=== PATIENT | female | born 1990 | race Caucasian/White ===

== ENCOUNTER 2016-12-27 14:26 | Emergency (ER) | payer OTHER ==
[2016-12-27 15:55] LABS: HEMOGLOBIN 15.6 gm/dl (12.3-15.3); RED BLOOD COUNT 5.1 M/UL (4.00-5.10); WHITE BLOOD COUNT 5.7 K/UL (4.5-11.0)
[2016-12-27 16:08] LABS: BUN/CREATININE RATIO 11 (0-10)
== END 2016-12-27 17:43 | disposition home or self-care (01) ==
LOC: ER1 14:26
PROVIDERS: Physician Assistant Medical
DX: J10.1 Influenza due to other identified influenza virus with other respiratory manifestations (principal); I10 Essential (primary) hypertension; Z88.8 Allergy status to other drugs, medicaments and biological substances
CPT/HCPCS: 36415; 80053; 81001; 82150; 83690; 84703; 85025; 87081; 87880; 99283; J7030

== ENCOUNTER 2020-12-02 10:37 | Emergency (ER) | payer OTHER ==
[~2020-12-02 10:37] MED LIST: AZITHROMYCIN500 MG PO; BENTYL 20MG TAB20 MG PO; Bromphed DM PO; CEFUROXIME500 MG PO; FELDENE10 MG PO; FLEXERIL 10 MG10 MG PO; FLONASE 0.05% N16 GM; IBUPROFEN600 MG PO; KEFLEX500 MG PO; LODINE CAP 300300 MG PO; MACROBID 100 M100 MG PO; NAPROSYN EC 50500 MG GT; PHENERGAN 25 MG25 M1 PO; PYRIDIUM200 MG PO; VALTREX1000 MG PO; ZOFRAN ODT 4 MG4 MG PO; ZOFRAN4 MG PO
[2020-12-02 12:32] LABS: HEMOGLOBIN 15.2 gm/dl (12.3-15.3); RED BLOOD COUNT 4.83 M/UL (4.00-5.10); WHITE BLOOD COUNT 9.9 K/UL (4.5-11.0)
[2020-12-02 12:50] LABS: BUN/CREATININE RATIO 15 (0-10)
[2020-12-02] MEDS ORDERED: BENTYL 20MG TAB20 MG PO (14:52)
== END 2020-12-02 14:52 | disposition home or self-care (01) ==
LOC: ER1 10:37
PROVIDERS: Physician Assistant
DX: K62.5 Hemorrhage of anus and rectum (principal); R10.84 Generalized abdominal pain; R19.7 Diarrhea, unspecified; R10.9 Unspecified abdominal pain; Z88.8 Allergy status to other drugs, medicaments and biological substances; Z87.442 Personal history of urinary calculi
CPT/HCPCS: 36415; 80053; 81001; 82150; 83690; 84703; 85025; 99284; J1644; J2405; J7030; Q9967

== ENCOUNTER 2021-05-20 23:07 | Emergency (ER) | payer OTHER ==
[2021-05-21 01:14] LABS: HEMOGLOBIN 14.2 gm/dl (12.3-15.3); RED BLOOD COUNT 4.52 M/UL (4.00-5.10); WHITE BLOOD COUNT 9.1 K/UL (4.5-11.0)
[2021-05-21 01:40] LABS: BUN/CREATININE RATIO 13 (0-10)
[2021-05-21] MEDS ORDERED: AMOXICILLIN875 MG PO (03:25)
== END 2021-05-21 03:35 | disposition home or self-care (01) ==
LOC: ER1 23:07
PROVIDERS: Physician Assistant
DX: H66.92 Otitis media, unspecified, left ear (principal); B34.9 Viral infection, unspecified; Z20.822 Contact with and (suspected) exposure to COVID-19; Z88.8 Allergy status to other drugs, medicaments and biological substances
CPT/HCPCS: 0240U; 71045; 80053; 81001; 82550; 82553; 83690; 83735; 83874; 83880; 84484; 84703; 85025; 87086; 99283

== ENCOUNTER 2021-05-28 11:14 | Emergency (ER) | payer OTHER ==
[~2021-05-28 11:14] MED LIST changes: +AMOXICILLIN875 MG PO
== END 2021-05-28 12:15 | disposition home or self-care (01) ==
LOC: ER1 11:14
DX: R42 Dizziness and giddiness (principal); G40.909 Epilepsy, unspecified, not intractable, without status epilepticus; Z88.8 Allergy status to other drugs, medicaments and biological substances; W19.XXXA Unspecified fall, initial encounter
CPT/HCPCS: 99283

== ENCOUNTER 2021-06-30 21:44 | Emergency (ER) | payer OTHER | END 2021-06-30 22:10 | disposition home or self-care (01) | LOC: ER1 21:44 | DX: Z20.822 Contact with and (suspected) exposure to COVID-19 (principal) | CPT/HCPCS: 99283; U0003 ==

== ENCOUNTER 2021-08-21 15:29 | Emergency (ER) | payer OTHER ==
[2021-08-21 16:57] LABS: RED BLOOD COUNT 5.01 M/UL (4.00-5.10); WHITE BLOOD COUNT 9.7 K/UL (4.5-11.0)
[2021-08-21 17:03] LABS: BORDETELLA PARAPERTUSSIS Not Detected (Not Detectd); BORDETELLA PERTUSSIS Not Detected (Not Detectd); CHLAMYDIA PNEUMONIAE Not Detected (Not Detectd); CORONAVIRUS HKU1 Not Detected (Not Detectd); CORONAVIRUS NL63 Not Detected (Not Detectd); CORONAVIRUS OC43 Not Detected (Not Detectd); CORONOAVIRUS 229E Not Detected (Not Detectd); HUMAN METAPNEUMOVIRUS Not Detected (Not Detectd); HUMAN RHINOVIRUS/ENTEROVIRUS Not Detected (Not Detectd); INFLUENZA A Not Detected (Not Detectd); INFLUENZA B Not Detected (Not Detectd); MYCOPLASMA PNEUMONIAE Not Detected (Not Detectd); PARAINFLUENZA VIRUS 1 Not Detected (Not Detectd); PARAINFLUENZA VIRUS 2 Not Detected (Not Detectd); PARAINFLUENZA VIRUS 3 Not Detected (Not Detectd); PARAINFLUENZA VIRUS 4 Not Detected (Not Detectd)
[2021-08-21 17:19] LABS: BUN/CREATININE RATIO 10 (0-10)
[2021-08-21 18:06] LABS: RESPIRATORY SYNCYTIAL VIRUS DETECTED (Not Detectd); SARS-CoV-2 NOT DETECTED (Not Detectd)
[2021-08-21] MEDS ORDERED: PROVENTIL HFA6.7 GM INH (18:26)
== END 2021-08-21 18:36 | disposition home or self-care (01) ==
LOC: ER1 15:29
PROVIDERS: Emergency Medicine
DX: R05.9 Cough, unspecified (principal); R09.81 Nasal congestion; B97.4 Respiratory syncytial virus as the cause of diseases classified elsewhere; Z88.8 Allergy status to other drugs, medicaments and biological substances; Z20.822 Contact with and (suspected) exposure to COVID-19
CPT/HCPCS: 71045; 80053; 85025; 85379; 87633; 99283

== ENCOUNTER 2022-03-16 15:55 | Emergency (ER) | payer OTHER ==
[~2022-03-16 15:55] MED LIST changes: +PROVENTIL HFA6.7 GM INH
== END 2022-03-16 18:30 | disposition left against medical advice (07) ==
LOC: ER1 15:55
DX: Z53.21 Procedure and treatment not carried out due to patient leaving prior to being seen by health care provider (principal)

== ENCOUNTER 2022-05-14 07:50 | Emergency (ER) | payer OTHER | END 2022-05-14 10:16 | disposition home or self-care (01) | LOC: ER1 07:50 | DX: S20.212A Contusion of left front wall of thorax, initial encounter (principal); F17.210 Nicotine dependence, cigarettes, uncomplicated; Y04.0XXA Assault by unarmed brawl or fight, initial encounter | CPT/HCPCS: 71046; 84703; 96374; 99284; J1885 ==